=== PATIENT | female | born 1930 | race Caucasian/White ===

== ENCOUNTER 2016-11-30 22:34 | Emergency (ER) | payer OTHER ==
[~2016-11-30] VITALS: Ht 167.6 cm; Wt 54.4 kg
[~2016-11-30 22:34] MED LIST: AMANTADINE HCL100 M1 PO; BACO TOP; COUMADIN3 MG PO; DIGOXIN0.25 M1 PO; FLECAINIDE ACE100 MG PO; HIBICLENS118 ML TOP; LAC PO; LEVAQUIN750 MG PO; LEVAQUIN750 MG/150 IV; SINEMET 25-1001 TAB PO
[2016-11-30 23:45] LABS: BASOPHIL % 0.4 % (0-2); PLATELET COUNT 147 x10^3mcL (130-400); RED CELL DISTRIBUTION WIDTH 13.4 % (11.5-14.5)
[2016-11-30 23:46] LABS: CALCIUM 8.6 mg/dL (8.5-10.1); CARBON DIOXIDE 24.6 mmol/L (21-32); CHLORIDE SERUM 107 mmol/L (98-107); CREATININE SERUM 0.9 mg/dL (0.6-1.0); GLUCOSE SERUM 104 mg/dL (74-106); POTASSIUM SERUM 4.2 mmol/L (3.5-5.1); SODIUM SERUM 141 mmol/L (136-145)
[2016-12-01 02:31] VITALS: BP 108/78
== END 2016-12-01 02:31 | disposition home or self-care (01) ==
LOC: ED 22:34
PROVIDERS: Emergency Medicine
DX: S01.81XA Laceration without foreign body of other part of head, initial encounter (principal); G20 Parkinson's disease; Z88.8 Allergy status to other drugs, medicaments and biological substances; W18.00XA Striking against unspecified object with subsequent fall, initial encounter; Y93.89 Activity, other specified; Y92.89 Other specified places as the place of occurrence of the external cause; Y99.8 Other external cause status
CPT/HCPCS: J2060

== ENCOUNTER 2017-01-12 07:50 | Inpatient (IN) | payer OTHER ==
[~2017-01-12] VITALS: Ht 167.6 cm; Wt 56.7 kg
[2017-01-12] MEDS ORDERED: RYTARY1 CE2 PO (08:29)
[2017-01-12] MEDS ORDERED: COUMADIN2 MG PO (08:30)
[2017-01-12] MEDS ORDERED: EXELON4.6 MG/21 TD (08:31)
[2017-01-12 08:53] LABS: BASOPHIL % 0.6 % (0-2); PLATELET COUNT 181 x10^3mcL (130-400); RED CELL DISTRIBUTION WIDTH 13.6 % (11.5-14.5)
[2017-01-12 09:10] LABS: CARBON DIOXIDE 25.4 mmol/L (21-32); CHLORIDE SERUM 105 mmol/L (98-107); POTASSIUM SERUM 4.1 mmol/L (3.5-5.1); SODIUM SERUM 141 mmol/L (136-145)
[2017-01-12 09:11] LABS: CREATININE SERUM 0.9 mg/dL (0.6-1.0); GLUCOSE SERUM 115 mg/dL (74-106); TOTAL PROTEIN, SERUM 6.7 g/dL (6.4-8.2)
[2017-01-12 09:14] LABS: ALBUMIN 3.5 g/dL (3.4-5.0); ALT/SGPT 9 U/L (14-59); AST/SGOT 21 U/L (15-37); BILIRUBIN TOTAL 0.6 mg/dL (0.20-1.00); CALCIUM 8.8 mg/dL (8.5-10.1)
[2017-01-12 09:15] LABS: ALKALINE PHOSPHATASE 63 U/L (46-116)
[2017-01-12 09:35] LABS: microscopic required? YES; urine erythrocyte NEGATIVE (NEGATIVE)
[2017-01-12 10:35] LABS: CHOLESTEROL/HDL RATIO 2.9; PHOSPHOROUS 3.2 mg/dL (2.5-4.9); T3 TOTAL 0.89 ng/mL
[2017-01-12 10:46] LABS: FREE T4 1.04 ng/dL (0.76-1.46); FREE THYROXINE INDEX 2.9 ug/dL (1.4-4.5)
[2017-01-12 11:36] VITALS: BP 139/85
[2017-01-12 13:52] LABS: AMPHETAMINE QUAL UR NONE DETECTED (NEG <=1000)
[2017-01-12 14:07] VITALS: BP 139/84
[2017-01-12 21:12] VITALS: BP 112/68
[2017-01-13] VITALS (8 sets, daily range): BP systolic 74–109; BP diastolic 41–63
[2017-01-14 06:00] VITALS: BP 107/57
[2017-01-14 06:44] LABS: BASOPHIL % 0.3 % (0-2); PLATELET COUNT 142 x10^3mcL (130-400); RED CELL DISTRIBUTION WIDTH 13.5 % (11.5-14.5)
[2017-01-14 06:55] LABS: CALCIUM 8.2 mg/dL (8.5-10.1); CARBON DIOXIDE 24.8 mmol/L (21-32); CHLORIDE SERUM 108 mmol/L (98-107); CREATININE SERUM 0.7 mg/dL (0.6-1.0); GLUCOSE SERUM 103 mg/dL (74-106); MAGNESIUM 1.9 mg/dL (1.8-2.4); PHOSPHOROUS 2.8 mg/dL (2.5-4.9); POTASSIUM SERUM 3.8 mmol/L (3.5-5.1); SODIUM SERUM 141 mmol/L (136-145)
[2017-01-14 09:35] VITALS: BP 93/52
[2017-01-14] MEDS ORDERED: LEVAQUIN750 MG PO ×2 (12:48→14:44)
[2017-01-14 14:05] VITALS: BP 99/60
[2017-01-14] MEDS ORDERED: LAC PO ×2 (14:09→14:44)
[2017-01-14] MEDS ORDERED: COUMADIN2 MG PO (14:44)
[2017-01-14 14:47] VITALS: BP 99/60
== END 2017-01-14 18:47 | DRG 871 ==
LOC: ED 07:50 → DU 09:42
PROVIDERS: Emergency Medicine; Family Medicine; ADMIT Student in an Organized Health Care Education/Training Program
DX: A41.9 Sepsis, unspecified organism (principal); I50.43 Acute on chronic combined systolic (congestive) and diastolic (congestive) heart failure; N17.0 Acute kidney failure with tubular necrosis; I42.9 Cardiomyopathy, unspecified; N39.0 Urinary tract infection, site not specified; R65.20 Severe sepsis without septic shock; S09.90XA Unspecified injury of head, initial encounter; S80.01XA Contusion of right knee, initial encounter; I95.1 Orthostatic hypotension; I48.2 Chronic atrial fibrillation; G20 Parkinson's disease; F02.80 Dementia in other diseases classified elsewhere, unspecified severity, without behavioral disturbance, psychotic disturbance, mood disturbance, and anxiety; R26.9 Unspecified abnormalities of gait and mobility; E78.5 Hyperlipidemia, unspecified; E78.00 Pure hypercholesterolemia, unspecified; Z95.0 Presence of cardiac pacemaker; Z87.891 Personal history of nicotine dependence; Z68.20 Body mass index [BMI] 20.0-20.9, adult; Z96.641 Presence of right artificial hip joint; Z96.653 Presence of artificial knee joint, bilateral; Z79.01 Long term (current) use of anticoagulants; W06.XXXA Fall from bed, initial encounter; Y92.092 Bedroom in other non-institutional residence as the place of occurrence of the external cause
CPT/HCPCS: 82962; 83880; 84439; 97110-GP; 97116-GP; 97530-GP; J0696; J1815; J1940; J7030; J7040; J8597; Q0092

== ENCOUNTER 2017-04-01 21:33 | Inpatient (IN) | payer OTHER ==
[~2017-04-01] VITALS: Ht 170.2 cm; Wt 56.7 kg
[~2017-04-01 21:33] MED LIST changes: +COUMADIN2 MG PO; +EXELON4.6 MG/21 TD; +RYTARY1 CE2 PO
[2017-04-01 22:30] LABS: BASOPHIL % 0.4 % (0-2); PLATELET COUNT 147 x10^3mcL (130-400); RED CELL DISTRIBUTION WIDTH 13.9 % (11.5-14.5)
[2017-04-01 22:39] LABS: CALCIUM 8.4 mg/dL (8.5-10.1); CARBON DIOXIDE 23.8 mmol/L (21-32); CHLORIDE SERUM 108 mmol/L (98-107); CREATININE SERUM 0.8 mg/dL (0.6-1.0); GLUCOSE SERUM 127 mg/dL (74-106); POTASSIUM SERUM 3.6 mmol/L (3.5-5.1); SODIUM SERUM 139 mmol/L (136-145)
[2017-04-01 22:51] LABS: ALKALINE PHOSPHATASE 66 U/L (46-116); ALT/SGPT 11 U/L (14-59); AST/SGOT 17 U/L (15-37); BILIRUBIN TOTAL 0.5 mg/dL (0.20-1.00)
[2017-04-01 22:53] LABS: ALBUMIN 2.9 g/dL (3.4-5.0); C REACTIVE PROTEIN < 0.2 mg/dL (<=0.9)
[2017-04-01 22:58] LABS: T3 TOTAL 0.78 ng/mL
[2017-04-01 23:07] LABS: CK-MB 1.4 ng/mL (0-3.6)
[2017-04-01 23:08] LABS: FREE T4 0.91 ng/dL (0.76-1.46); FREE THYROXINE INDEX 2.6 ug/dL (1.4-4.5); T4(THYROXINE) 6.7 ug/dL (4.7-13.3)
[2017-04-01 23:12] LABS: microscopic required? NO
[2017-04-01 23:24] LABS: ERYTHROCYTE SED RATE 6 mm/hr (0-30)
[2017-04-01 23:29] LABS: UA SPECIFIC GRAVITY >=1.030 (1.005-1.035); urine erythrocyte NEGATIVE (NEGATIVE)
[2017-04-02] VITALS (7 sets, daily range): BP systolic 106–119; BP diastolic 70–82
[2017-04-02] MEDS ORDERED: SYSTANE 0.3-0.415 ML OP (01:22)
[2017-04-02] MEDS ORDERED: [UNRECOGNIZED DRUG - REMARK] OD (01:22)
[2017-04-02 02:50] LABS: MAGNESIUM 1.9 mg/dL (1.8-2.4); PHOSPHOROUS 3.6 mg/dL (2.5-4.9)
[2017-04-02 02:51] LABS: CHOLESTEROL/HDL RATIO 2.8
[2017-04-02 06:41] LABS: BASOPHIL % 0.4 % (0-2); PLATELET COUNT 151 x10^3mcL (130-400); RED CELL DISTRIBUTION WIDTH 14.1 % (11.5-14.5)
[2017-04-02 06:55] LABS: CALCIUM 8.4 mg/dL (8.5-10.1); CARBON DIOXIDE 25.5 mmol/L (21-32); CHLORIDE SERUM 107 mmol/L (98-107); CREATININE SERUM 0.8 mg/dL (0.6-1.0); GLUCOSE SERUM 97 mg/dL (74-106); MAGNESIUM 1.8 mg/dL (1.8-2.4); PHOSPHOROUS 3.9 mg/dL (2.5-4.9); POTASSIUM SERUM 3.7 mmol/L (3.5-5.1); SODIUM SERUM 143 mmol/L (136-145)
[2017-04-03 05:38] VITALS: BP 105/67
[2017-04-03 06:11] LABS: BASOPHIL % 0.3 % (0-2); PLATELET COUNT 151 x10^3mcL (130-400); RED CELL DISTRIBUTION WIDTH 14.1 % (11.5-14.5)
[2017-04-03 06:28] LABS: CALCIUM 8.6 mg/dL (8.5-10.1); CARBON DIOXIDE 28.4 mmol/L (21-32); CHLORIDE SERUM 106 mmol/L (98-107); CREATININE SERUM 0.8 mg/dL (0.6-1.0); GLUCOSE SERUM 95 mg/dL (74-106); POTASSIUM SERUM 3.4 mmol/L (3.5-5.1); SODIUM SERUM 142 mmol/L (136-145)
[2017-04-03 07:30] VITALS: BP 115/75
[2017-04-03 12:07] VITALS: BP 114/74
[2017-04-03] MEDS ORDERED: TOBRAMYCIN OP (13:16)
[2017-04-03] MEDS ORDERED: AMANTADINE HCL100 MG PO (13:16)
[2017-04-03] MEDS ORDERED: SPIRONOLACTONE25 MG PO ×2 (13:16→18:32)
[2017-04-03] MEDS ORDERED: DEXAMETHASONE OP (13:16)
[2017-04-03] MEDS ORDERED: SYSTANE 0.3-0.415 ML OP (13:17)
[2017-04-03] MEDS ORDERED: CARVEDILOL3.125 M1 PO ×2 (13:17→18:32)
[2017-04-03] MEDS ORDERED: RYTARY1 CE2 PO (13:18)
[2017-04-03] MEDS ORDERED: EXELON4.6 MG/21 TOP (13:19)
[2017-04-03 13:49] VITALS: BP 115/75
[2017-04-03 18:25] VITALS: Ht 170.2 cm; Wt 56.7 kg
== END 2017-04-03 18:23 | disposition home health service (06) | DRG 56 ==
LOC: ED 21:33 → DU 23:47
PROVIDERS: Specialist; ADMIT Family Medicine
DX: G20 Parkinson's disease (principal); N17.0 Acute kidney failure with tubular necrosis; I50.43 Acute on chronic combined systolic (congestive) and diastolic (congestive) heart failure; I42.0 Dilated cardiomyopathy; Z68.1 Body mass index [BMI] 19.9 or less, adult; E44.1 Mild protein-calorie malnutrition; I11.0 Hypertensive heart disease with heart failure; E86.0 Dehydration; E87.6 Hypokalemia; I48.91 Unspecified atrial fibrillation; I35.0 Nonrheumatic aortic (valve) stenosis; I34.0 Nonrheumatic mitral (valve) insufficiency; I36.1 Nonrheumatic tricuspid (valve) insufficiency; Z96.642 Presence of left artificial hip joint; Z95.0 Presence of cardiac pacemaker; Z87.891 Personal history of nicotine dependence; Z96.653 Presence of artificial knee joint, bilateral; Z79.01 Long term (current) use of anticoagulants
CPT/HCPCS: 36600; 82962; 83880; 84439; 94150; 97110-GP; 97116-GP; 97530-GP; J0515; J1940; J1956; J2405; J7030; J7620; Q0092

== ENCOUNTER 2017-05-02 07:25 | Emergency (ER) | payer OTHER ==
[~2017-05-02] VITALS: Ht 165.1 cm; Wt 49.9 kg
[~2017-05-02 07:25] MED LIST changes: +AMANTADINE HCL100 MG PO; +CARVEDILOL3.125 M1 PO; +DEXAMETHASONE OP; +EXELON4.6 MG/21 TOP; +SPIRONOLACTONE25 MG PO; +SYSTANE 0.3-0.415 ML OP; +TOBRAMYCIN OP; +[UNRECOGNIZED DRUG - REMARK] OD
[2017-05-02 07:32] VITALS: Ht 165.1 cm; Wt 49.9 kg
[2017-05-02 08:28] LABS: BASOPHIL % 1.2 % (0-2); PLATELET COUNT 150 x10^3mcL (130-400); RED CELL DISTRIBUTION WIDTH 15.1 % (11.5-14.5)
[2017-05-02 08:38] LABS: CALCIUM 8.7 mg/dL (8.5-10.1); CARBON DIOXIDE 25.2 mmol/L (21-32); CHLORIDE SERUM 108 mmol/L (98-107); CREATININE SERUM 0.9 mg/dL (0.6-1.0); GLUCOSE SERUM 92 mg/dL (74-106); POTASSIUM SERUM 4.1 mmol/L (3.5-5.1); SODIUM SERUM 140 mmol/L (136-145)
[2017-05-02 08:42] LABS: UA SPECIFIC GRAVITY >=1.030 (1.005-1.035); microscopic required? YES; urine erythrocyte NEGATIVE (NEGATIVE)
[2017-05-02 08:42] LABS: ALKALINE PHOSPHATASE 59 U/L (46-116); ALT/SGPT 11 U/L (14-59); AST/SGOT 14 U/L (15-37); BILIRUBIN TOTAL 0.71 mg/dL (0.20-1.00); CHOLESTEROL 195 mg/dL (<200)
[2017-05-02 08:57] LABS: ALBUMIN 3.2 g/dL (3.4-5.0); HDL CHOLESTEROL 72 mg/dL (40-60); TOTAL PROTEIN, SERUM 6.1 g/dL (6.4-8.2)
[2017-05-02 11:10] VITALS: BP 112/73
== END 2017-05-02 11:10 | disposition home or self-care (01) ==
LOC: ED 07:25
PROVIDERS: Emergency Medicine
DX: E86.0 Dehydration (principal); N39.0 Urinary tract infection, site not specified; I10 Essential (primary) hypertension; G20 Parkinson's disease; Z88.8 Allergy status to other drugs, medicaments and biological substances
CPT/HCPCS: 83880; 87804; J0696; J3490; Q0092

== ENCOUNTER 2017-09-07 16:21 | Emergency (ER) | payer OTHER ==
[~2017-09-07] VITALS: Ht 165.1 cm; Wt 50.8 kg
[2017-09-07 16:24] VITALS: Ht 165.1 cm; Wt 50.8 kg
[2017-09-07 19:36] VITALS: BP 112/67
== END 2017-09-07 19:36 | disposition home or self-care (01) ==
LOC: ED 16:21
DX: S50.01XA Contusion of right elbow, initial encounter (principal); I10 Essential (primary) hypertension; Z88.8 Allergy status to other drugs, medicaments and biological substances; W05.0XXA Fall from non-moving wheelchair, initial encounter; Y93.89 Activity, other specified; Y92.89 Other specified places as the place of occurrence of the external cause; Y99.8 Other external cause status
CPT/HCPCS: Q0092

== ENCOUNTER 2018-08-24 20:58 | Emergency (ER) | payer OTHER | END 2018-08-24 23:25 | disposition home or self-care (01) | LOC: ED 20:58 ==

== ENCOUNTER 2018-09-01 09:18 | Emergency (ER) | payer OTHER ==
[~2018-09-01] VITALS: Ht 165.1 cm; Wt 60.3 kg
[2018-09-01 09:18] VITALS: Ht 165.1 cm; Wt 60.3 kg
[2018-09-01 09:57] LABS: BASOPHIL % 0.3 % (0-2); PLATELET COUNT 147 x10^3mcL (130-400)
[2018-09-01 10:06] LABS: RED CELL DISTRIBUTION WIDTH 15.3 % (11.5-14.5)
[2018-09-01 10:16] LABS: CALCIUM 8.3 mg/dL (8.5-10.1); CARBON DIOXIDE 26.4 mmol/L (21-32); CHLORIDE SERUM 106 mmol/L (98-107); CREATININE SERUM 0.9 mg/dL (0.6-1.0); GLUCOSE SERUM 122 mg/dL (74-106); POTASSIUM SERUM 3.5 mmol/L (3.5-5.1); SODIUM SERUM 140 mmol/L (136-145)
[2018-09-01 10:21] LABS: ALKALINE PHOSPHATASE 65 U/L (46-116); ALT/SGPT 10 U/L (14-59); AST/SGOT 15 U/L (15-37); BILIRUBIN TOTAL 0.71 mg/dL (0.20-1.00)
[2018-09-01 10:27] LABS: ALBUMIN 3.1 g/dL (3.4-5.0); TOTAL PROTEIN, SERUM 5.9 g/dL (6.4-8.2)
[2018-09-01 12:28] VITALS: BP 138/87
== END 2018-09-01 12:28 | disposition home or self-care (01) ==
LOC: ED 09:18
PROVIDERS: Emergency Medicine
DX: R07.0 Pain in throat (principal); R09.89 Other specified symptoms and signs involving the circulatory and respiratory systems; I10 Essential (primary) hypertension; I48.91 Unspecified atrial fibrillation; Z95.0 Presence of cardiac pacemaker; Z88.8 Allergy status to other drugs, medicaments and biological substances
CPT/HCPCS: 36415

== ENCOUNTER 2018-10-09 06:24 | Emergency (ER) | payer OTHER ==
[~2018-10-09] VITALS: Ht 165.1 cm; Wt 49.9 kg
[2018-10-09 06:28] VITALS: Ht 165.1 cm; Wt 49.9 kg
[2018-10-09 08:12] LABS: PLATELET COUNT 140 x10^3mcL (130-400)
[2018-10-09 08:17] LABS: microscopic required? YES; urine erythrocyte NEGATIVE (NEGATIVE)
[2018-10-09 08:19] LABS: RED CELL DISTRIBUTION WIDTH 15.8 % (11.5-14.5)
[2018-10-09 08:32] LABS: AMPHETAMINE QUAL UR NONE DETECTED (See below)
[2018-10-09 08:36] LABS: ALKALINE PHOSPHATASE 61 U/L (46-116); ALT/SGPT 7 U/L (14-59); AST/SGOT 19 U/L (15-37); CALCIUM 8.7 mg/dL (8.5-10.1); CARBON DIOXIDE 24.5 mmol/L (21-32); CHLORIDE SERUM 108 mmol/L (98-107); CHOLESTEROL 196 mg/dL (<200); GLUCOSE SERUM 105 mg/dL (74-106); LIPASE 27 IU/L (73-393); MAGNESIUM 2.1 mg/dL (1.8-2.4); POTASSIUM SERUM 3.8 mmol/L (3.5-5.1); SODIUM SERUM 140 mmol/L (136-145); T4(THYROXINE) 6.4 ug/dL (4.7-13.3)
[2018-10-09 08:59] LABS: BILIRUBIN TOTAL 0.81 mg/dL (0.20-1.00); CREATININE SERUM 0.8 mg/dL (0.6-1.0)
[2018-10-09 09:01] LABS: HDL CHOLESTEROL 62 mg/dL (40-60); TOTAL PROTEIN, SERUM 6.1 g/dL (6.4-8.2)
[2018-10-09 09:55] VITALS: BP 126/82
== END 2018-10-09 09:55 | disposition home or self-care (01) ==
LOC: ED 06:24
PROVIDERS: Emergency Medicine
DX: M24.541 Contracture, right hand (principal); I10 Essential (primary) hypertension; E46 Unspecified protein-calorie malnutrition; G20 Parkinson's disease; I48.91 Unspecified atrial fibrillation; Z95.0 Presence of cardiac pacemaker; Z66 Do not resuscitate; Z88.8 Allergy status to other drugs, medicaments and biological substances; W18.39XA Other fall on same level, initial encounter; Y93.89 Activity, other specified; Y92.098 Other place in other non-institutional residence as the place of occurrence of the external cause; Y99.8 Other external cause status
CPT/HCPCS: 36415; 82962; G0480; J7030; Q0092

== ENCOUNTER 2018-11-04 15:37 | Observation (INO) | payer OTHER ==
[~2018-11-04] VITALS: Ht 167.6 cm; Wt 49.1 kg
[2018-11-04 15:53] VITALS: Ht 167.6 cm; Wt 49.1 kg
--- NOTE | 2018-11-04 17:03 | NUR ---
PT BROUGHT IN BY DTR VIA W/C FOR INCREASED CONFUSION AND STATES SHE THINKS HER MOM HAS A UTI. PT HAS DECREASE IN PO FLUID INTAKE AND HAS BEEN C/O INTERMITTENT DYSURIA X3 -4 DAYS. DTR DENIES ANY RECENT FEVERS/CHILLS. PT AWAKE, ALERT TO NAME ONLY, WITH PMH: DEMENTIA, PARKINSONS. RESP EVEN AND UNLABORED, IN NAD. PT DENIES ANY SOB OR CP. ABD SOFT, FLAT, NON TENDER TO PALPATION. NO FACILA GRIMACING NOTED. WAIITNG FOR ER MD ROJAS.
--- NOTE | 2018-11-04 17:34 | NUR ---
IN AND OUT CATH DONE WITH ASEPTIC TECHNIQUE,PT TOLERATED WELL. DTR AT BEDSIDE. SAFETY PRECAUTIONS IN PLACE.
[2018-11-04 17:43] LABS: BASOPHIL % 0.4 % (0-2); PLATELET COUNT 159 x10^3mcL (130-400)
[2018-11-04 17:44] LABS: RED CELL DISTRIBUTION WIDTH 15.3 % (11.5-14.5)
[2018-11-04 17:45] LABS: microscopic required? YES; urine erythrocyte NEGATIVE (NEGATIVE)
[2018-11-04 18:07] LABS: CALCIUM 8.5 mg/dL (8.5-10.1); CHLORIDE SERUM 108 mmol/L (98-107); CREATININE SERUM 0.8 mg/dL (0.6-1.0); GLUCOSE SERUM 76 mg/dL (74-106); POTASSIUM SERUM 3.3 mmol/L (3.5-5.1); SODIUM SERUM 145 mmol/L (136-145)
[2018-11-04 18:12] LABS: AMPHETAMINE QUAL UR NONE DETECTED (See below)
[2018-11-04 18:20] LABS: ALKALINE PHOSPHATASE 62 U/L (46-116); ALT/SGPT 12 U/L (14-59); AST/SGOT 10 U/L (15-37); BILIRUBIN TOTAL 0.5 mg/dL (0.20-1.00); CHOLESTEROL 185 mg/dL (<200); HDL CHOLESTEROL 56 mg/dL (40-60); LIPASE 32 IU/L (73-393); T4(THYROXINE) 5.4 ug/dL (4.7-13.3)
[2018-11-04 18:21] LABS: TOTAL PROTEIN, SERUM 5.8 g/dL (6.4-8.2)
[2018-11-04] MEDS ORDERED: RYTARY1 CE2 PO (19:29)
[2018-11-04] MEDS ORDERED: APAP500 MG PO (19:30)
--- NOTE | 2018-11-04 19:37 | NUR ---
FIRST CONTACT WITH PT. PT MEDICATED PER EMAR. PT NOTED TO BE A/O X2 DAUGHTER AT BEDSIDE STATES THAT THIS IS PT NORMAL MENTATION. PT VITALS ARE WNL. NO ACUTE DISTRESS NOTED.
--- NOTE | 2018-11-04 20:20 | NUR ---
REPORT GIVEN TO JULIO LIVE TO ASSUME CARE OF PT.
--- NOTE | 2018-11-04 21:08 | NUR ---
RECIEVED CALL FROM [facility], MEDICATION SYMMETREL NOT AVAIABLE TILL MONDAY 11/06. CONTACTED DAUGHTER TO NOTIFY ABOUT MEDICATION, SHE STATES SHE CAN NOT BRING IT IN TOMRROW 11/05 DUE TO WORK. NOTIFIED PHARMACY. WILL CONT TO MONITOR AND ANTICIPATE ORDERS.
[2018-11-04 21:20] VITALS: BP 132/77
--- NOTE | 2018-11-04 21:30 | NUR ---
CALLED DR FITZGERALD TO VERIFY POTASSIUM ORDER. MADE AWARE THAT PT RECIEVED DOSE IN ER. WILL ANTICIPATE NEW ORDERS.
--- NOTE | 2018-11-05 00:30 | NUR ---
PT IS ASLEEP IN BED. O2 2L NC IN PLACE. BREATHING EVEN AND UNLABORED. NO RESP DISTRESS NOTED. PT RESPONDS TO VERBAL COMMANDS. WILL CONT TO MONITOR. CALL LIGHT WITHIN REACH.
--- NOTE | 2018-11-05 06:10 | NUR ---
PT ARRIVED TO [facility] FLOOR FROM ED 11/04/18. PT SLEPT THROUGH THE NIGHT. BREATHE SOUND EVEN AND UNLABORED. PT LUNG SOUNDS DIMINSHED BILATERLALY ON 2L O2 NC. PT HAS ACTIVE BOWEL SOUNS. PT INCONTINENT. PT HAS GENERAL WEAKNESS, REPOSITIONED Q2HR OR NEEDED. PT HAS ERYTHEMA/SCABS TO COCCYX AREA COVERED WITH OPTIFORM. PT IV TO RAC CDI. NO ACUTE CHANGES OVER NIGHT. WILL CONT TO MONITOR AND ENDORSE CARE TO DAY SHIFT NURSE.
[2018-11-05 06:11] VITALS: BP 121/76
[2018-11-05 06:12] LABS: BASOPHIL % 0.3 % (0-2); PLATELET COUNT 145 x10^3mcL (130-400)
[2018-11-05 06:28] LABS: CALCIUM 8.8 mg/dL (8.5-10.1); CARBON DIOXIDE 25.1 mmol/L (21-32); CHLORIDE SERUM 111 mmol/L (98-107); CREATININE SERUM 0.7 mg/dL (0.6-1.0); GLUCOSE SERUM 100 mg/dL (74-106); SODIUM SERUM 145 mmol/L (136-145)
[2018-11-05 06:39] LABS: RED CELL DISTRIBUTION WIDTH 15.2 % (11.5-14.5)
--- NOTE | 2018-11-05 07:30 | NUR ---
RECEIVED HAND OFF REPORT FROM NURSE. PATIENT SLEEPING AT THIS TIME. EYES CLOSED, BREATHING REGULAR. NO APPARENT DISTRESS. CALL LIGHT WITHIN REACH, INSOLE DEPARTMENT WORKER SITTER IN ROOM.
--- NOTE | 2018-11-05 08:03 | NUR ---
PAITIENT AWAKE AT THIS TIME. NO COMPLAINTS OF PAIN, 2L OXYGEN VIA NC. TURNED PATIENT, OPTIFOAM IN PLACE ON COCCYX. CALL LIGHT WITHIN REACH, SITTER IN ROOM
--- NOTE | 2018-11-05 08:10 | NUR ---
WOUND CARE EVALUATION NOTE: REASON FOR EVALUATION: SACRAL WOUNDS SKIN ASSESSMENT DONE ON THIS 88 Y/O FEMALE PT [place] [facility] [place]. ADMITTED WITH PRESSURE ULCER TO SACRALCOCCYX AREA.PT.SKIN IS WARM AND THIN BLE NO HAIR GROWTH.BILATERAL DORSAL PEDAL PULSES PRESENT AND NORMAL. PT. IS INCONTINENT OF BOWEL AND BLADDER. REQUIRE ONE PERSON ASSIST IN ADL'S PLAN OF CARE DISCUSSED WITH PRIMARY RN AND PT. PT.NEEDS REINFORCEMENT IN TEACHING INTEGUMENTARY: -RIGHT AND LEFT BUTTOCKS AND HEELS BLANCHABLE REDNESS -SACRALCOCCYX PRESSURE INJURY STAGE 2, 0.5X0.5X0.1 CM WOUND BED WHITE, LYDIA WOUND SKIN INTACT RECOMMENDATIONS: -APPLY Z-GUARD AND OPTIFOAM TO SACRALCOCCYX QD & PRN IF SOILING -APPLY OPTIFOAM TO LEFT AND RIGHT SCAPULAS QD & PRN IF SOILING -CLEANSE LLE CHURCH DRY SKIN TEAR WITH NS. PAT DRY PAINT WITH BETADINE SOLUTION BID AND LEAVE IT OPEN TO AIR -HEEL PROTECTORS TO BILATERAL HEELS -OFFLOAD BILATERAL HEELS BY PLACING PILLOWS UNDER CALVES UNLESS OTHERWISE CONTRAINDICATED -PRESSURE REDISTUBUTION SURFACE THERAPY -CONTINUE TO FOLLOW RD RECOMMENDATIONS ALL ABOVE RECOMMENDATIONS DISCUSSED WITH PRIMARY RN
[2018-11-05 09:17] VITALS: BP 128/78
[2018-11-05] MEDS ORDERED: AMANTADINE HCL100 MG PO (10:47)
--- NOTE | 2018-11-05 12:05 | NUR ---
SPOKE WITH PHILIP FROM PT. STATED PATIENT WAS ABLE TO AMBULATE AND RECOMENDED PT REGULARLY. PATIENT IS STILL CONFUSED SO WILL NOT BE ABLE TO USE COMAdeptence
--- NOTE | 2018-11-05 12:12 | NUR ---
SPOKE WITH DR FITZGERALD. HE SAID IT IS OKAY TO CONTINUE PATIENT HOME MEDICATIONS, AMANTADINE.
--- NOTE | 2018-11-05 13:36 | NUR ---
ADMINSITERED MEDICATION PER JUN. NO COMPLICATIONS.
--- NOTE | 2018-11-05 13:59 | NUR ---
OPTIFOAM APPLIED TO SHOULDERBLANDS PER WOUND CARE NURSE RECOMENDATION. REAPLIED OPTIFOAM TO BUTTOCKS AFTER SOILED. SITTER IN ROOM WITH PATIENT. CALL LIGHT WITHIN REACH
[2018-11-05 14:03] VITALS: BP 106/70
--- NOTE | 2018-11-05 17:44 | NUR ---
WOUND CARE INITATED UNABLE TO LOCATE HEEL PROTECTION FOR PATIENT. PILLOWS UNDER LEGS, WOUNDS DOCUMENTED. PATIENT REPOSITIONED. CALL LIGHT WITHIN REACH
[2018-11-05 18:30] VITALS: BP 114/62
--- NOTE | 2018-11-05 19:50 | NUR ---
RECIEVED PT FROM DAY SHIFT NURSE. PT IS A/O X1, SLOW SPEECH PRESENT, PT RESPONDS TO VERBAL STIMULI. PT IS HARD OF HEARING. PT IS ON TELE #28 WITH 100% PACED HR 73. NO RESP DISRTESS NOTED AT THIS TIME. PT LUNG SOUNDS DIMINSHED BILATERALLY, ON 2L O2 NC. PT HAS ACTIVE BOWEL SOUNDS, LAST BM 11/05. PT ABS SOFT AND FLAT. PT IS INCONTINENT. PT HAS GENERAL WEAKNESS, BED AT LOWEST POSITION, CALL LIGHT WITHIN REACH. PT HAS ERYTHEMA TO BUTTOCKS AND HEELS. PT HAS SACRAL COCCYX PRESSURE INJURY, WOUND BED WHITE COVERED WITH OPTIFORM AND ZGUARD. NO DRAINGE NOTED. PT DENIES ANY PAIN AT THIS TIME. PT HAS IV TO RAC CDI. WILL CONT TO MONITOR, CALL LIGHT WITHIN REACH.
[2018-11-05 20:31] VITALS: BP 98/60
--- NOTE | 2018-11-06 00:08 | NUR ---
PT IS ASLEEP IN BED. PT HAS O2 2L NC, BREATHE EVEN AND UNLABORED. NO RESP DISTRESS NOTED. PT IS AROUSABLE WITH VERBAL SIMULI, SPEECH IS SLOW. NO SIGNS OF PAIN OBSERVED. WILL CONT TO MONITOR. CALL LIGHT WITHIN REACH. PT REPOSTIONED.
--- NOTE | 2018-11-06 05:13 | NUR ---
PT SELPT THROUGH THE Cint.PT RESPONDS TO VERBAL STIMULI. PT IS HARD OF HEARING. PT IS ON TELE #28 WITH 100% PACED HR 73. NO RESP DISRTESS NOTED AT THIS TIME, ON 2L O2 NC.PT HAS GENERAL WEAKNESS, BED AT LOWEST POSITION, CALL LIGHT WITHIN REACH. PT HAS ERYTHEMA TO BUTTOCKS AND HEELS. PT HAS SACRAL COCCYX PRESSURE INJURY, WOUND BED WHITE COVERED WITH OPTIFORM AND ZGUARD. NO DRAINGE NOTED. PT DENIES ANY PAIN AT THIS TIME. PT HAS IV TO RAC CDI. WILL CONT TO MONITOR, CALL LIGHT WITHIN REACH. NO ACUTE CHANGES THROUGH OUT THE NIGHT. WILL ENDORSE CARE TO DAY SHIFT NURSE.
[2018-11-06 06:20] VITALS: BP 132/84
[2018-11-06 07:06] LABS: RAPID PLASMA REAGIN Non Reactive (Non Reactive)
--- NOTE | 2018-11-06 07:15 | NUR ---
RECEIVED BEDSIDE REPORT FROM PERSONAL CARE ATTENDANT NURSE AT THIS TIME. PATIENT RESTING COMFORTABLY IN BED. NO APPARENT DISTRESS OR DISCOMFORT NOTED. BREATHING EVEN AND UNLABORED. NO RESPIRATORY DISTRESS OR DISCOMFORT NOTED. NO INDICATION OF CHEST PAIN/PRESSURE AT THIS TIME. IV PATENT AND INTACT. ALL QUESTIONS AND CONCERNS ADDRESSED. ALL NEEDS ATTENDED TO. WILL CONTINUE TO MONITOR
[2018-11-06 09:10] LABS: RHEUMATOID ARTHRITIS FACTOR <10.0 IU/mL (0.0-13.9)
[2018-11-06 09:35] VITALS: BP 113/68
--- NOTE | 2018-11-06 10:20 | NUR ---
ALL MORNING MEDICATIONS ADMINISTERED. PATIENT TOLERATED WELL. NO ADVERSE EFFECTS NOTED. ALL NEEDS ATTENDED TO. WILL CONTINUE TO MONITOR
[2018-11-06 13:20] VITALS: BP 110/64
--- NOTE | 2018-11-06 13:24 | NUR ---
PATIENT SITTING UP IN BED EATING LUNCH AT THIS TIME WITH HELP FROM IRRIGATIONIST DESIGNER. PATIENT TOLERATING DIET WELL. NO APPARENT DISTRESS OR DISCOMFORT NOTED. ALL NEEDS ATTENDED TO. WILL CONTINUE TO MONITOR
--- NOTE | 2018-11-06 14:45 | NUR ---
SPOKE TO DR FITZGERALD REGARDING PATIENT DISCHARGE INSTRUCTIONS BEING A DRAFT AND NOT SIGNED. PER DR FITZGERALD, HE "DOES NOT KNOW HOW TO CHANGE DRAFT TO SIGNED." ALSO SPOKE TO DR FITZGERALD REGARDING PATIENT ANTIBIOTICS AT 1800; PER DR FITZGERALD OKAY TO ADMINISTER ANTIBIOTICS EARLY. ALL QUESTIONS AND CONCERNS ADDRESSED. ALL NEEDS ATTENDED TO. WILL CONTINUE
[2018-11-06 15:15] VITALS: BP 110/64
--- NOTE | 2018-11-06 15:19 | NUR ---
CALLED IVAN AT THIS TIME. SPOKE TO KACIE AT THE TILE EDGER. PER KACIE, NO ANSWER FROM [facility] OR NUMERICAL CONTROL NESTING OPERATOR BRIGID AND SHE WILL INFORM THE UNIT PATIENT IS DISCHARGED AND WILL BE RETURNING BACK TO [facility] TODAY WITH DAUGHTER GUILLERMINA TRANSPORTING PATIENT. ALL QUESTIONS AND CONCERNS ADDRESSED. ALL NEEDS ATTENDED TO. WILL CONTINUE TO MONITOR
--- NOTE | 2018-11-06 15:36 | NUR ---
Intervention 1. Continue on Regular diet 2. Recommend Ensure BID
--- NOTE | 2018-11-06 15:36 | NUR ---
Initial Nutrition Assessment: Yanely LING Rm 209A Dx: UTI, Increased Confusion PMHx: CAD, CHF, HTN, UTI PSHx: None noted Labs: (11/05) Cl 111H, (11/04) BUN 23.0H, Alb. 3.0L Meds: Aldactone, Ambien, Ativan, Levaquin, Phenergan Diet: Regular PO intake since admission: (11/05) B-30%, L-50%, D-100% (11/06) 60-80% Ht: 167.6cm, 65in Wt: 49kg, 107# BMI: 17.5kg/m2 (Underweight) Bed scale:113#, 51kg IBW:125#, 56kg %IBW: 85.6% UBW: could not ask because pt was sleeping Age: 88/F Food Allergies: NKFA Skin: Erythema to buttocks. Saccral coccyx Stage 2 pressure injury per wound RN covered w/optiform and zguard, no drainage noted. King: 16 Edema: None noted GI: Last BM: 11/05/18 Per H&P: H/O HTN CHFCARDIOMYOPATHY PARKINSONS DEMENTIA WAS FOUND TO BE MORE ALTERED AND WAS TAKEN TO THE ED FOR EVAL. MULTIPLEWRK UPS DONE IN THE ED, UA WAS POSITIVE. PATIENT WAS ANDERSON CULTURED AND WAS STARTED ON AN IV ANTIBIOTIC AND TRANSFERRED TO A TELE UNIT. RD Note (11/06/18): Went into room to speak to pt but she was asleep. Spoke with MARIA T Petit and she said the patient has had no N/V/C/D and that she has a good appetite. She said the patient requires assistance when eating but does fine with the food she is given. Marisabel also said that the patient is going home today. Problem with: N: No V: No D: No C: No Problems with: Chewing: None Swallowing: None Current appetite: Good Recent wt change: None %wt change: None Vitamin/Supplement use: None Special diet at home: Regular Physical activity: None Nutrition education given (specify specific nutrition education and handout given): Patient was asleep. Food-drug interactions: Aldactone (diuretic) -check on Potassium levels, Ativan-do not take with alcohol. Education given: No pt was asleep Estimated Nutritional Needs Based on actual body weight (49kg) Energy: 1470-1960kcal/day (30-40kcal/kg for underweight) Protein: 59g-63/day (g/kg for 1.2-1.3 for age) Fluid: 1470-1960mL/day (1 mL/kcal) or per Nutrition Diagnosis: 1. Increased nutrient needs r/t altered skin integrity aeb presence of stage 2 p/u at sacralcoccyx per potato chip processing supervisor. Intervention 1. Continue on Regular diet 2. Recommend Ensure BID Monitor/Evaluate Goal: PO intake at least 75% of estimated needs Monitor: PO intake, Labs, GI function MR F/U 11/09-11/11
--- NOTE | 2018-11-06 16:20 | NUR ---
PATIENT STABLE TO BE DISCHARGED BACK TO [place]. DISCHARGE INSTRUCTIONS GIVEN WELL EDUCATION TO DAUGHTER SANJEEV AT BEDSIDE. INSTRUCTED PATIENT AND DAUGHTER TO FOLLOW UP WITH PCP. PATIENT DAUGHTER VERBALIZES UNDERSTANDING. IV REMOVED WITH CATH INTACT. ID BANDS REMOVED. TELE MONITOR REMOVED AND RETURNED TO MIRROR FABRICATION SUPERVISOR. ALL BELONGINGS WITH PATIENT. ALL QUESTIONS AND CONCERNS ADDRESSED. ALL NEEDS ATTENDED TO. PATIENT ESCORTED DOWN TO THE LOBBY BY BRANDON AT THIS TIME
== END 2018-11-06 16:22 | DRG 689 ==
LOC: ED 15:37 → DU 19:38
PROVIDERS: Emergency Medicine; ADMIT Internal Medicine
DX: N39.0 Urinary tract infection, site not specified (principal); G93.41 Metabolic encephalopathy; I42.9 Cardiomyopathy, unspecified; I43 Cardiomyopathy in diseases classified elsewhere; E46 Unspecified protein-calorie malnutrition; Z68.1 Body mass index [BMI] 19.9 or less, adult; E86.0 Dehydration; E87.6 Hypokalemia; I11.9 Hypertensive heart disease without heart failure; I25.10 Atherosclerotic heart disease of native coronary artery without angina pectoris; G31.83 Neurocognitive disorder with Lewy bodies; F02.80 Dementia in other diseases classified elsewhere, unspecified severity, without behavioral disturbance, psychotic disturbance, mood disturbance, and anxiety; Z95.0 Presence of cardiac pacemaker; Z96.653 Presence of artificial knee joint, bilateral; Z87.891 Personal history of nicotine dependence
CPT/HCPCS: 82962; 86431; 97116-GP; 97530-GP; G0378; G0480; J1956; J7030; Q0092

== ENCOUNTER 2018-12-02 01:51 | Emergency (ER) | payer OTHER ==
[~2018-12-02] VITALS: Ht 165.1 cm; Wt 58.1 kg
[~2018-12-02 01:51] MED LIST changes: +APAP500 MG PO
[2018-12-02 01:59] VITALS: Ht 165.1 cm; Wt 58.1 kg
[2018-12-02 06:07] VITALS: BP 114/73
== END 2018-12-02 06:07 | disposition home or self-care (01) ==
LOC: ED 01:51
DX: S09.8XXA Other specified injuries of head, initial encounter (principal); I11.0 Hypertensive heart disease with heart failure; I50.9 Heart failure, unspecified; F03.90 Unspecified dementia, unspecified severity, without behavioral disturbance, psychotic disturbance, mood disturbance, and anxiety; Z85.89 Personal history of malignant neoplasm of other organs and systems; Z95.0 Presence of cardiac pacemaker; Z88.8 Allergy status to other drugs, medicaments and biological substances; W06.XXXA Fall from bed, initial encounter; Y93.89 Activity, other specified; Y92.89 Other specified places as the place of occurrence of the external cause; Y99.8 Other external cause status